=== PATIENT | female | born 1945 | race Caucasian/White ===

== ENCOUNTER 2020-10-13 14:32 | Emergency (ER) | payer MEDICARE, OTHER ==
[~2020-10-13] VITALS: Ht 157.5 cm; Wt 81.7 kg
[~2020-10-13 14:32] MED LIST: ACET500 PO; ALBIPROI INH; ALBU.083IS IH; AMLO5 PO; ASPIR 8181 M1 PO; ATEN25 PO; ATOR40TA; ATOR80 PO; BENZ100A; BUMETANIDE PO; CARV3.125 PO; CEPH500 PO; CITA20; CITA20 PO; DIPH50 PO; DOC250 PO; ECOTRIN PO; ETOD200; ETOD400; EUTHYROX88 MCG PO; FURO40; FURO40 PO; GLIP10 PO; GLIP10ER; HYDMOR2 PO; INSN100I SC; INSULANI; INSULIN AS100 UNIT/6 SC; ISODIN10; ISOSORBIDE DINITRATE; Klor-Con-Ef 2525 MEQ PO; LAX; LEVSOD50 PO; LOSA50 PO; LOVA40 PO; MELATONIN PO; MELATONIN5 M1 PO; METF500; METF850; METO2.5 PO; METO5; MONT10T; MONT10T PO; NATE60 PO; NITR100CA PO; ONDA4ODT MM; PIOG15; POTCHL20ER; RALO60; SPIR25 PO; SPIR50 PO; THEO200ERA; THEO200ERA PO; TRESIBA FL200 UNIT/2 SS; TRIHYD253A; TRIHYD253B; VITAMIN D310 MC4 PO; XARELTO20 MG PO; ZYRTEC10 M2 PO
[2020-10-13 15:18] LABS: BASOPHILS ABSOLUTE AUTO 0.04 K/mm3 (0.00-0.23); BASOPHILS PERCENT AUTO 0 % (0-2); EOSINOPHILS ABSOLUTE AUTO 0.06 K/mm3 (0.00-0.68); EOSINOPHILS PERCENT AUTO 0 % (0-6); Hematocrit 38.1 % (33.0-51.0); Hemoglobin 12.7 g/dL (11.5-16.0); IMMATURE GRAN ABSOLUTE AUTO 0.07 K/mm3 (0.00-0.10); IMMATURE GRAN PERCENT AUTO 1 % (0-1); LYMPHOCYTES ABSOLUTE AUTO 1.39 K/mm3 (0.84-5.20); LYMPHOCYTES PERCENT AUTO 10 % (21-46); MONOCYTES ABSOLUTE AUTO 0.56 K/mm3 (0.16-1.47); MONOCYTES PERCENT AUTO 4 % (4-13); Mean Corpuscular HGB 28.5 pg (26.0-34.0); Mean Corpuscular HGB Conc 33.3 g/dL (31.5-36.5); Mean Corpuscular Volume 85 fL (80-100); Mean Platelet Volume 9.8 fL (9.1-12.4); NEUTROPHILS ABSOLUTE AUTO 12.27 K/mm3 (1.96-9.15); NEUTROPHILS PERCENT AUTO 85 % (41-73); Platelet Count 351 K/mm3 (150-400); RDW Coefficient Variation 13.5 % (11.7-14.2); RDW Standard Deviation 42.5 fL (35.1-46.3); Red Blood Cell Count 4.46 M/mm3 (3.80-5.20); White Blood Cell Count 14.39 K/mm3 (4.00-11.30)
[2020-10-13 15:42] LABS: Albumin, Blood 3.8 g/dL (3.4-5.0); Bilirubin, Total 0.6 mg/dL (0.1-1.0); Bun/Creatinine Ratio 27.7 (12.0-20.0); Calcium, Blood 9.6 mg/dL (8.5-10.1); Creatinine, Blood 2.56 mg/dL (0.40-1.00); Globulin, Blood 3.9 g/dL (2.2-4.0); Total Protein, Blood 7.7 g/dL (6.4-8.2)
[2020-10-13 18:30] LABS: Source, Urine Clean Catch
[2020-10-13] MEDS ORDERED: POTA10T PO (18:37)
[2020-10-13 18:39] LABS: Appearance, Urine Clear (Clear); Bilirubin, Urine Neg (Neg); Blood, Urine Neg (Neg); Color, Urine Yellow (P-Yellow); Glucose Qualitative, Urine 3+ (Neg); Ketones, Urine Neg (Neg); Leukocyte Esterase, Urine Neg (Neg); Nitrite, Urine Neg (Neg); Protein, Urine Neg (Neg); Urobilinogen, Urine NORM (Normal)
== END 2020-10-13 20:00 | disposition home or self-care (01) ==
LOC: ER 14:32
PROVIDERS: Physician Assistant
DX: S09.90XA Unspecified injury of head, initial encounter (principal); S80.12XA Contusion of left lower leg, initial encounter; S60.042A Contusion of left ring finger without damage to nail, initial encounter; S60.052A Contusion of left little finger without damage to nail, initial encounter; E87.1 Hypo-osmolality and hyponatremia; E86.0 Dehydration; I13.0 Hypertensive heart and chronic kidney disease with heart failure and stage 1 through stage 4 chronic kidney disease, or unspecified chronic kidney disease; E11.22 Type 2 diabetes mellitus with diabetic chronic kidney disease; N18.4 Chronic kidney disease, stage 4 (severe); I50.32 Chronic diastolic (congestive) heart failure; I48.91 Unspecified atrial fibrillation; E78.5 Hyperlipidemia, unspecified; I25.10 Atherosclerotic heart disease of native coronary artery without angina pectoris; E03.9 Hypothyroidism, unspecified; Z79.4 Long term (current) use of insulin; Z88.5 Allergy status to narcotic agent; Z88.1 Allergy status to other antibiotic agents; Z79.899 Other long term (current) drug therapy; Z95.5 Presence of coronary angioplasty implant and graft; W18.30XA Fall on same level, unspecified, initial encounter
CPT/HCPCS: 36415; 70450; 73130; 80053; 81003; 82947; 84484; 85025; 93005; 93010; 96360; 96361; 99284-25; J7030